=== PATIENT | female | born 1965 | race Caucasian/White ===

== ENCOUNTER 2019-01-07 16:59 | Emergency (ER) | payer BC, OTHER ==
[2019-01-07] MEDS ORDERED: Sodium Chloride 0.9% 1,000 ML ONE ×3 (17:31→21:06)
[2019-01-07] MEDS ORDERED: Ondansetron PF 4 MG/2 ML Vial ONE (17:31)
[2019-01-07] MEDS ORDERED: Dicyclomine 10 MG CAP ONE (17:31)
[2019-01-07 17:47] LABS: #Basophils 0.1 thou/uL (0.0-0.2); #Lymphocytes 1.4 thou/uL (1.20-3.40); #Monocytes 0.6 thou/uL (0.11-0.59); %Basophils 0.7 % (0.0-1.0); %Eosinophils 0.2 % (0.0-10.0); %Lymphocytes 17.1 % (21.0-51.0); Hemoglobin 13.7 g/dL (12.0-16.0); Mean Corpuscular HGB CONC 32.2 g/dL (32.0-36.0); Mean Corpuscular Volume 96.2 fL (78.0-98.0); Mean Platelet Volume 6.8 fL (7.4-10.4); Platelet Count 366 thou/uL (130-400); RBC Distribution Width 12.3 % (11.5-14.5); Red Blood Cell (RBC) Count 4.43 mill/uL (4.20-5.40); White Blood Cell (WBC) Count 7.9 thou/uL (4.8-10.8)
[2019-01-07 18:06] LABS: ALT (SGPT) 13 U/L (8-55); AST (SGOT) 38 U/L (5-34); Albumin 4.6 g/dL (3.5-5.0); Alkaline Phosphatase 87 U/L (40-150); Anion Gap 23 mmol/L (10-20); BUN (Urea Nitrogen) 14 mg/dL (9.8-20.1); Bilirubin, Total 0.2 mg/dL (0.2-1.2); Calc. Creatinine Clearance 0 mL/min (70-130); Calcium 9.4 mg/dL (7.8-10.44); Carbon Dioxide 12 mmol/L (22-29); Chloride 109 mmol/L (98-107); Estimated GFR-MDRD 70; Globulin 3.3 g/dL (2.4-3.5); Magnesium 1.6 mg/dL (1.6-2.6); Potassium 3.9 mmol/L (3.5-5.1); Protein, Total 7.9 g/dL (6.0-8.3); Sodium 140 mmol/L (136-145)
[2019-01-07 18:09] LABS: Glucose 56 mg/dL (70-105)
[2019-01-07] MEDS ORDERED: Acetaminophen 500 MG TAB ONE (19:26)
[2019-01-07] MEDS ORDERED: Promethazine HCl 25 MG/ML VIAL ONE (19:26)
[2019-01-07 20:47] LABS: Anion Gap 20 mmol/L (10-20); BUN (Urea Nitrogen) 11 mg/dL (9.8-20.1); Calc. Creatinine Clearance 0 mL/min (70-130); Calcium 8.5 mg/dL (7.8-10.44); Carbon Dioxide 13 mmol/L (22-29); Chloride 113 mmol/L (98-107); Estimated GFR-MDRD 75; Glucose 64 mg/dL (70-105); Potassium 3.9 mmol/L (3.5-5.1); Sodium 142 mmol/L (136-145)
== END 2019-01-07 22:30 | disposition short-term general hospital (02) ==
LOC: MADERS 16:59
DX: K52.9 Noninfective gastroenteritis and colitis, unspecified (principal); E87.2 Acidosis; G43.909 Migraine, unspecified, not intractable, without status migrainosus; J45.909 Unspecified asthma, uncomplicated; Z79.51 Long term (current) use of inhaled steroids; Z79.899 Other long term (current) drug therapy
CPT/HCPCS: 36415; 80053; 83605; 83690; 83735; 85025; 96361; 96365; 96375; J2405; J2550; J7050

== ENCOUNTER 2019-08-05 14:06 | Emergency (ER) | payer BC ==
[2019-08-05] MEDS ORDERED: Ketorolac Tromethamine 30 MG/ML VIAL ONE (14:23)
[2019-08-05] MEDS ORDERED: Morphine 4 MG/ML VIAL ONE (14:23)
--- NOTE | 2019-08-05 14:48 | CT ---
CT abdomen and pelvis noncontrast HISTORY: Flank pain. COMPARISON: Outside exam 04/26/2019. FINDINGS: Each renal collecting system, ureter, and urinary bladder are decompressed. There is a 0.2 cm calcification within a nondilated calyx at the superior pole left kidney. Punctate calcifications are also present within nondilated calyces of the right kidney. Lack of contrast limits evaluation for other abnormalities. Calcified granulomata of the spleen. Lobu lar liver cysts. Degenerative changes lumbar spine. IMPRESSION: Tiny nonobstructing bilateral renal calculi.
[2019-08-05 15:03] LABS: Bilirubin Negative (Negative); Blood, Urine Trace (Negative); Clarity Hazy (Clear); Glucose, Urine (Dipstick) Negative (Negative); Leukocyte Trace (Negative); Nitrite Negative (Negative); Protein, Urine (Dipstick) Negative (Neg-Trace); Urobilinogen 0.2 mg/dL (Less than 2)
[2019-08-05 15:11] LABS: Bacteria/HPF Rare-Few HPF (None Seen); RBC/HPF 0-3 HPF (0-3); WBC/HPF 0-3 HPF (0-3)
== END 2019-08-05 15:30 | disposition home or self-care (01) ==
LOC: MADERS 14:06
DX: M54.5 Low back pain (principal); G43.909 Migraine, unspecified, not intractable, without status migrainosus; J45.909 Unspecified asthma, uncomplicated
CPT/HCPCS: 74176; 81003; 81015; 96372; J1885; J2270

== ENCOUNTER 2020-08-06 15:55 | Emergency (ER) | payer BC ==
[2020-08-06] MEDS ORDERED: Ciprofloxacin 500 MG TAB ONE (16:39)
[2020-08-06] MEDS ORDERED: Ketorolac Tromethamine 30 MG/ML VIAL ONE (16:39)
[2020-08-06] MEDS ORDERED: Sodium Chloride 0.9% 1,000 ML ONE (16:39)
[2020-08-06] MEDS ORDERED: Metoclopramide HCl 10 MG/2 ML VIAL ONE (16:39)
[2020-08-06] MEDS ORDERED: diphenhydrAMINE 50 MG/ML VIAL ONE (16:39)
[2020-08-06 16:57] LABS: #Basophils 0.1 thou/uL (0.0-0.2); #Eosinphils 0.1 thou/uL (0.0-0.7); #Lymphocytes 2.6 thou/uL (1.20-3.40); #Monocytes 0.8 thou/uL (0.11-0.59); #Neutrophils 8.9 thou/uL (1.40-6.50); %Basophils 0.7 % (0.0-1.0); %Eosinophils 0.5 % (0.0-10.0); %Lymphocytes 20.8 % (21.0-51.0); %Monocytes 6.4 % (0.0-10.0); %Neutrophils 71.5 % (42.0-75.0); Hemoglobin 14.6 g/dL (12.0-16.0); Mean Corpuscular HGB CONC 31.3 g/dL (32.0-36.0); Mean Corpuscular Hemoglobin 29.8 pg (27.0-31.0); Mean Corpuscular Volume 95.1 fL (78.0-98.0); Platelet Count 554 thou/uL (130-400); RBC Distribution Width 13.7 % (11.5-14.5); Red Blood Cell (RBC) Count 4.92 mill/uL (4.20-5.40); White Blood Cell (WBC) Count 12.5 thou/uL (4.8-10.8)
[2020-08-06 17:13] LABS: ALT (SGPT) 9 U/L (8-55); AST (SGOT) 38 U/L (5-34); Albumin 3.8 g/dL (3.5-5.0); Alkaline Phosphatase 130 U/L (40-110); Anion Gap 18 mmol/L (10-20); BUN (Urea Nitrogen) 15 mg/dL (9.8-20.1); Bilirubin, Total 0.4 mg/dL (0.2-1.2); Calc. Creatinine Clearance 0 mL/min (70-130); Calcium 9.2 mg/dL (7.8-10.44); Carbon Dioxide 19 mmol/L (22-29); Chloride 108 mmol/L (98-107); Estimated GFR-MDRD 70; Globulin 3.5 g/dL (2.4-3.5); Glucose 108 mg/dL (70-105); Lipase 14 U/L (8-78); Protein, Total 7.3 g/dL (6.0-8.3); Sodium 142 mmol/L (136-145)
[2020-08-06 17:17] LABS: Potassium 2.9 mmol/L (3.5-5.1)
[2020-08-06] MEDS ORDERED: Potassium Chloride 20 MEQ TAB ONE (17:22)
[2020-08-06 17:59] LABS: Bilirubin Small (Negative); Blood, Urine Moderate (Negative); Clarity Clear (Clear); Glucose, Urine (Dipstick) Negative (Negative); Ketone, Urine 15 mg/dL (Negative); Leukocyte Trace (Negative); Nitrite Negative (Negative); Protein, Urine (Dipstick) 30 mg/dL (Neg-Trace); Specific Gravity, Urine 1.025 (1.005-1.030); Urobilinogen 0.2 mg/dL (Less than 2)
[2020-08-06 18:01] LABS: Bacteria/HPF 1+ HPF (None Seen); RBC/HPF 0-3 HPF (0-3); Yeast-Budding Rare HPF (None Seen)
== END 2020-08-06 18:42 | disposition home or self-care (01) ==
LOC: MADERS 15:55
DX: G43.909 Migraine, unspecified, not intractable, without status migrainosus (principal); B85.0 Pediculosis due to Pediculus humanus capitis; S40.812A Abrasion of left upper arm, initial encounter; S40.811A Abrasion of right upper arm, initial encounter; J45.909 Unspecified asthma, uncomplicated; Y33.XXXA Other specified events, undetermined intent, initial encounter
CPT/HCPCS: 36415; 80053; 81003; 81015; 83690; 85025; 96361; 96374; 96375; J1200; J1885; J2765; J7050

== ENCOUNTER 2021-02-01 15:36 | Emergency (ER) | payer BC, OTHER, SELFPAY ==
[~2021-02-01 15:36] MED LIST: Ondansetron PF 4 MG/2 ML Vial ONE; Sodium Chloride 0.9% 1,000 ML BAG ONE
[2021-02-01 18:09] LABS: ALT (SGPT) 11 U/L (8-55); AST (SGOT) 47 U/L (5-34); Albumin 3.9 g/dL (3.5-5.0); Alkaline Phosphatase 112 U/L (40-110); Anion Gap 20 mmol/L (10-20); BUN (Urea Nitrogen) 11 mg/dL (9.8-20.1); Bilirubin, Total 0.5 mg/dL (0.2-1.2); Calc. Creatinine Clearance 0 mL/min (70-130); Calcium 9.5 mg/dL (7.8-10.44); Carbon Dioxide 21 mmol/L (22-29); Chloride 101 mmol/L (98-107); Globulin 3.3 g/dL (2.4-3.5); Glucose 120 mg/dL (70-105); Lipase 12 U/L (8-78); Potassium 3.4 mmol/L (3.5-5.1); Protein, Total 7.2 g/dL (6.0-8.3); Sodium 139 mmol/L (136-145)
[2021-02-01 18:15] LABS: Band 1 % (5-11); Hemoglobin 15.6 g/dL (12.0-16.0); Lymphocytes 9 % (21-51); MDiff Complete? YES; Macrocytosis SLIGHT = 6-15 cells (100X) (0-5/hpf); Mean Corpuscular HGB CONC 31.7 g/dL (32.0-36.0); Mean Corpuscular Hemoglobin 31.9 pg (27.0-31.0); Mean Corpuscular Volume 100.6 fL (78.0-98.0); Mean Platelet Volume 7.1 fL (7.4-10.4); Monocytes 4 % (0-10); Neutrophil 84 % (42-75); Platelet Count 423 thou/uL (130-400); Platelet Morphology Comment Appears Increased; RBC Distribution Width 13.9 % (11.5-14.5); Reactive Lymphocytes 2 % (0-10); Red Blood Cell (RBC) Count 4.88 mill/uL (4.20-5.40); White Blood Cell (WBC) Count 9.1 thou/uL (4.8-10.8)
[2021-02-01] MEDS ORDERED: Promethazine HCl 25 MG/ML VIAL ONE (18:57)
[2021-02-01] MEDS ORDERED: Sodium Chloride 0.9% 50 ML ONE (18:57)
[2021-02-01 19:03] LABS: Bilirubin Negative (Negative); Blood, Urine Negative (Negative); Glucose, Urine (Dipstick) Negative (Negative); Ketone, Urine Trace mg/dL (Negative); Leukocyte Small (Negative); Nitrite Negative (Negative); Protein, Urine (Dipstick) Trace mg/dL (Neg-Trace); Urobilinogen 0.2 mg/dL (Less than 2); pH, Urine 7.5 (5.0-9.0)
[2021-02-01 19:04] LABS: Clarity Cloudy (Clear)
[2021-02-01 19:09] LABS: Bacteria/HPF 2+ HPF (None Seen); RBC/HPF 0-3 HPF (0-3); Squamous Epithelial 0-3 HPF (0-3)
[2021-02-01] MEDS ORDERED: cefTRIAXone\\ROCEPHIN 1 GM VIAL ONE (19:30)
[2021-02-01] MEDS ORDERED: Sodium Chloride 0.9% 1,000 ML ONE ×2 (19:31→20:39)
[2021-02-01] MEDS ORDERED: Fentanyl 100 MCG/2 ML VIAL ONE (20:42)
== END 2021-02-01 20:58 | disposition short-term general hospital (02) ==
LOC: MADERS 15:36
DX: A41.9 Sepsis, unspecified organism (principal); N39.0 Urinary tract infection, site not specified; G43.909 Migraine, unspecified, not intractable, without status migrainosus; J45.909 Unspecified asthma, uncomplicated
CPT/HCPCS: 36415; 71045; 74176; 80053; 81003; 81015; 83605; 83690; 84484; 85025; 87040; 87086; 93005; 94760; 96365; 96367; 96375; J0696; J2405; J2550; J3010; J7050

== ENCOUNTER 2021-06-08 12:36 | Emergency (ER) | payer OTHER, SELFPAY ==
[2021-06-08] MEDS ORDERED: Lidocaine 1% 20 ML MDV ONE (14:07)
[2021-06-08] MEDS ORDERED: cefTRIAXone\\ROCEPHIN 1 GM VIAL ONE (14:07)
== END 2021-06-08 14:30 | disposition home or self-care (01) ==
LOC: MADERS 12:36
DX: J01.10 Acute frontal sinusitis, unspecified (principal); G43.909 Migraine, unspecified, not intractable, without status migrainosus; J45.909 Unspecified asthma, uncomplicated; Z87.442 Personal history of urinary calculi
CPT/HCPCS: 96372; 99283; J0696; J1040